=== PATIENT | male | born 1970 | race Caucasian/White ===

== ENCOUNTER 2018-12-19 09:31 | Emergency (ER) | payer MEDICAID, OTHER ==
[2018-12-19] MEDS ORDERED: predniSONE 20 MG TAB PO ONE (10:22)
[2018-12-19] MEDS ORDERED: diphenhydrAMINE 25 MG CAP PO ONE (10:22)
--- NOTE | 2018-12-19 10:27 | EDPHY ---
General - History Smoking Status: Never smoked Time Seen by Provider: 12/19/18 10:10 Narrative: CLINICAL IMPRESSION: Rash ASSESSMENT/PLAN: Patient is a 47-year-old male with no significant medical history, presents to the ED with a rash that has been present for 1 month. The patient is well appearing, no acute distress. He is afebrile, vital signs reviewed and no findings to suggest systemic illness or sepsis. Physical examination reveals maculopapular rash to generalized torso, predominantly in the elbow creases as well as generalized lower extremities. Patient with use of herbal remedy, rash occurred immediately after, suspect this is etiology. Patient has had no fever or URI symptoms. It is not petechial, do not suspect vasculitis. There are no signs of meningismus, low clinical suspicion for meningococcemia. There were no clinical findings to suggest anaphylaxis, SJS/TENS, varicella virus, measles, roseola, rubella or erythema infectiosum. Secondary to reported prednisone allergy, patient has not been trialed on steroid therapy. I initiated prednisone in the emergency department as well as Benadryl, patient was monitored for a period of time with no adverse reaction. Patient was given 5 days of prednisone to continue and is instructed to take Pepcid, Zyrtec and Benadryl as needed for itching. He has an appointment scheduled on to initiate care with a primary care provider, I have also provided a referral to Dermatology. Patient's blood pressure was noted to be mildly elevated on arrival, this normalized without intervention. Strict return precautions discussed- patient is to return to the emergency department should for worsening rash, oral swelling, oral lesions, difficulty breathing, skin sloughing, lethargy, altered mentation or for any other concerning symptom. Patient verbalizes understanding and she is in agreement with this plan. DIFFERENTIAL DX: Drug reaction, Anaphylaxis, SJS/TENS, varicella virus, measles, roseola, rubella or erythema infectiosum ED COURSE: 1014: Case discussed with Dr. Stratton CHIEF COMPLAINT: Rash HPI: Patient is a 47-year-old male with no significant medical history who presents to the emergency department with complaints of ongoing rash. Patient reports that he was involved in a snowboarding accident on November 12, he was seen by his software design manager on the and was started on a [place] herbal remedy [place]. The following day he had a full body rash, he discontinued the medication however has persisted to have rash since. Patient was seen by urgent care on November 18 and was given dexamethasone single dose as well as hydroxyzine and started Zyrtec. He feels that he has had no improvement of his symptoms. Patient with reported remote allergy to prednisone where he sustained a full body rash as a result of taking. No other known allergies or history of anaphylaxis. Patient's rash has been constant, predominantly on his torso, in elbow creases and on lower legs. It is described as very itchy. He denies any worsening of this rash, however no improvement either. Denies any fever, neck stiffness, chest pain, shortness of breath, change in appetite, nausea, vomiting, abdominal pain or change in bowel habits. PAST MEDICAL HISTORY: Denies Social History: Denies ROS: A full 10 point review of systems was negative except for those mentioned in HPI. PHYSICAL EXAM: General Appearance: Alert, oriented, appropriate, cooperative, NAD, well hydrated, non-toxic appearing, VSS, no hypoxia. HEENT: TMs are clear bilaterally no perforation or FB, no injection, no evidence of serous or mucopurulent otitis. Oropharynx clear is no erythema or exudates, no tonsillar hypertrophy or asymmetry. Dentition without abnormality. Eyes: PERRLA, no acute vision change, nystagmus, swelling, discharge, pain or photosensitivity. Conjunctiva pink, no pallor or injection Neck: Supple, nontender, no lymphadenopathy, no midline pain, FROM, no meningismus. Respiratory: There are no retractions, lungs are clear to auscultation. Cardiac: Regular rate and rhythm, no murmurs or gallops. Gastrointestinal: Abdomen is soft, nontender, bowel sounds normal, no masses/ hernia, no rigidity, guarding or focal peritoneal findings. Skin: Warm, dry, no nodules on palpation. Patient with maculopapular rash faintly along torso and lower extremities, predominantly in the elbow creases. It is nonvesicular, there is no evidence of petechiae. MEDICAL DECISION MAKING: Patient was seen independently. Secondary supervising physician at time of evaluation was Dr. Stratton, he also evaluated this patient. Diagnosis: Rash . New, requires workup Summary: See Assessment and Plan for summary of ED visit Clinical lab tests: Not applicable. Independent visualization of images, tracing, or specimens: Not applicable. Decision to obtain medical records or history from someone other than the patient: No Review / Summarize previous medical records: No Discussed patient with another provider: Yes, Dr. Stratton Patient Progress: Stable, discharge. (Patience Obando) Medical Decision Making: I also saw the patient in the ED. I reviewed the history of rash for 1 month beginning after using some herbs. The rash is itchy. No trouble swallowing or breathing. Been using hydroxyzine and Benadryl for rash. It is generalized. Exam shows stable vital signs. Pharynx without injection. There is no stridor. Patient is speaking in full sentences. Rashes a dry appearing maculopapular rash in the flexor creases of elbow shows, on his chest. I discussed treatment plan with the patient and with PA. He expresses understanding and agreement (Wellington Stratton) - Objective Vital Signs: Initial Vital Signs Temperature (C) 36.7 C 12/19/18 09:34 Heart Rate 63 12/19/18 09:34 Respiratory Rate 17 12/19/18 09:34 Blood Pressure 145/104 H 12/19/18 09:34 O2 Sat (%) 97 12/19/18 09:34 O2 Delivery Mode Room Air Allergies/Adverse Reactions: prednisone Allergy (Verified 12/19/18 09:34) Home Medications: Medication Instructions Recorded Benadryl 12/19/18 predniSONE [Deltasone] 20 mg PO BID 5 Days tablet 12/19/18 Medications Given: Discontinued Medications Diphenhydramine HCl (Benadryl) 50 mg PO EDNOW ONE Stop: 12/19/18 10:23 Last Admin: 12/19/18 10:31 Dose: 50 mg Prednisone (Prednisone) 60 mg PO EDNOW ONE Stop: 12/19/18 10:23 Last Admin: 12/19/18 10:33 Dose: 60 mg Departure - Departure Disposition: Home, Routine, Self-Care Clinical Impression: Rash Condition: Good Instructions: Urticaria (ED) Additional Instructions: DISCHARGE INSTRUCTIONS FROM YOUR DOCTOR Thank you for visiting our emergency department today. Please keep in mind that discharge from the emergency department does not mean that there is nothing wrong - it simply means that we have not identified an emergency condition that requires further evaluation or treatment in the hospital. You should always plan to follow up with primary care for re-evaluation of your condition in the next 2-3 days. If you have been referred to a specialist, please call as soon as possible ( today or tomorrow) to schedule your follow up appointment at the appropriate time. Avoid any known allergens and exposures. Keep a diary of exposures and symptoms to determine any new allergies. Avoid itching and scratching. Take Zyrtec 10 mg nightly. This is over the counter. Pepcid 40 mg daily. This is over the counter. Benadryl 25 mg every 4-6 hours as needed for breakthrough itching, hives and/or swelling. OR Atarax as prescribed 25 mg every 6 hours as needed for itching, hives and/or swelling. Continue prednisone for the next 5 days. If a steroid is taken close to allergy testing, the results will be affected. Please see your primary care provider as discuss this week. Watch closely for any signs of throat tightness and/or difficulty breathing. These symptoms can suggest a life threatening allergic reaction and require immediate attention of a medical professional. Return for recurrent facial swelling,swelling involving the mouth, lips, tongue , for difficulty breathing or swallowing, shortness of breath, wheezing,fainting , development of fever, for severe headache, neck stiffness, or for any other new, worsening, or worrisome symptoms. People present with illnesses and injuries in different ways, and it is always possible that we have missed something. You may always return for re-evaluation if symptoms worsen or if they are not improving or if you develop new/different symptoms. Again, thank you for choosing our emergency department. We hope that you feel better. Referrals: Kailyn Fairbanks MD [Medical Doctor] - 2-3 days, call for appt. Joya Haile MD [Medical Doctor] - 1-2 days without fail Prescriptions: predniSONE [Deltasone] 20 mg PO BID 5 Days tablet
[2018-12-19 12:44] VITALS: BP 118/62
== END 2018-12-19 12:42 | disposition home or self-care (01) ==
DX: R21 Rash and other nonspecific skin eruption (principal)
CPT/HCPCS: J7512